=== PATIENT | male | born 1995 | race Caucasian/White ===

== ENCOUNTER → 2018-04-21 13:08 | Outpatient (CLI) | payer OTHER, SELFPAY ==
[2018-04-21 13:12] LABS: Microscopic, Urine URINE MICROSCOPIC (MICROSCOPIC)
[2018-04-21 13:26] LABS: Basophils # 0.1 K/mm3 (0-0.2); Basophils % 0.7 % (0.1-2.0); Eosinophils # 0.2 K/mm3 (0.0-0.4); Eosinophils % 2.7 % (0.1-12.0); Hematocrit 47.9 % (42.0-52.0); Hemoglobin 15.6 g/dL (14.1-18.0); Lymphocytes % 29.4 % (10-50); Mean Corpuscular HGB Conc 32.5 g/dL (31.8-35.4); Mean Corpuscular Hemoglobin 28.9 pg (27.0-31.2); Monocytes # 0.4 K/mm3 (0.1-1.0); Monocytes % 5.7 % (1.7-9.3); Neutrophils # 4.2 K/mm3 (1.8-7.8); Neutrophils % 61.7 % (37.0-80.0); Platelet Count 226 K/mm3 (142-424); Red Blood Count 5.38 M/mm3 (4.60-6.20); Red Cell Distribution Width 13.2 % (11.5-17.5); White Blood Count 6.8 K/mm3 (4.8-10.8)
[2018-04-21 14:30] LABS: Hemoglobin A1C 5.3 % (0.0-7.0)
[2018-04-21 14:37] LABS: Alanine Aminotransferase 24 U/L (12-78); Albumin Level 4.4 gm/dL (3.4-5.0); Albumin/Globulin Ratio 1.5 (1.1-1.8); Alkaline Phosphatase 52 U/L (46-116); Anion Gap 12.4 mEq/L (5-15); Aspartate Amino Transferase 12 U/L (15-37); Bilirubin,Total 1.2 mg/dL (0.2-1.0); Blood Urea Nitrogen 7 mg/dL (7-18); Carbon Dioxide 30 mmol/L (21.0-32.0); Chloride 104 mmol/L (98-107); Creatinine,Serum 0.83 mg/dL (0.70-1.30); Estimated Glomerular Filt Rate 115 ml/min (>60); Free Thyroxine Index 2.7 ug/dL (5.93-13.13); GFR (African American) 139 ML/MIN (>60); Globulin 2.9 gm/dl (1.3-3.2); Glucose 86 mg/dL (74-106); Potassium 4.4 mmoL/L (3.5-5.1); Sodium 142 mmol/L (136-145); T4 (Thyroxine) 7.8 ug/dl (4.7-13.3); Thyroid Stimulating Hormone 1.72 uIU/ml (0.358-3.740); Total Protein,Serum 7.3 gm/dL (6.4-8.2); Triiodothryronine (T3) Uptake 35 % (31-39)
[2018-04-21 15:15] LABS: Appearance,Urine CLEAR (Clear); Bilirubin,Urine Negative (Negative); Blood, Urine Negative (Negative); Color,Urine YELLOW (Yellow); Glucose,Urine (UA) Negative (Negative); Ketones,Urine TRACE (Negative); Leukocyte Esterase,Urine Negative (Negative); Nitrate,Urine Negative (Negative); PH,Urine 5.5 (5.0-8.5); Protein,Urine Negative (Negative); Specific Gravity, Urine >= 1.030 (1.005-1.030); Urobilinogen,Urine 0.2 EU/dl (0.2)
[2018-04-21 15:27] LABS: Amphetamine/Metha Screen,Urine Negative ng/mL (<1000); Bacteria,Urine 1+ /lpf; Barbiturates Screen,Urine Negative ng/mL (<200); Benzodiazepines Screen,Urine Negative ng/mL (<200); Cannabinoid Screen,Urine Positive ng/mL (<50); Cocaine Screen,Urine Negative ng/mL (<300); Methadone Screen,Urine Negative ng/mL (<300); Mucus,Urine Trace /lpf; Opiate Screen,Urine Negative ng/mL (<300); Phencyclidine Screen,Urine Negative ng/mL (<25); RBC,Urine Occasional #/hpf (0-3)
[2018-04-22 09:44] LABS: Vitamin B12 862 pg/mL (232-1245)
== END ==
PROVIDERS: Visit Provider Internal Medicine Adolescent Medicine
DX: R35.8 Other polyuria (principal); G80.8 Other cerebral palsy
CPT/HCPCS: 36415; 80053; 80305; 81001; 82607; 82652; 83036; 84436; 84443; 84479; 85025

== ENCOUNTER 2021-01-12 09:02 | Emergency (ER) | payer OTHER, SELFPAY ==
[2021-01-12 09:32] VITALS: BP 143/79; PULSE 69; RESP 20; TEMP 36.8; O2SAT 98; BMI 21.2
[2021-01-12 09:58] VITALS: BP 143/79; PULSE 69; RESP 20; TEMP 36.8
--- NOTE | 2021-01-12 10:10 | HMH.EDUTC ---
[facility] [place] Disposition Clinical Impression: Viral syndrome Disposition: Home, Self-Care Condition on Discharge: Good Instructions: DI for Viral Syndrome, DI for COVID-19 (Suspected or Confirmed ), Preventing the Spread of Coronavirus Discharge Instructions Additional Instructions: Drink plenty of fluids. Take tylenol or ibuprofen for pain or fever. Take the medications as directed. Follow up with your regular doctor. GO TO THE ER FOR ANY WORSENING SYMPTOMS Quarantine until you know the results of your covid-19 test. If it is positive, the health department should call you and give you further instructions about your length of Quarantine and other things. Notify your school or workplace of your results and follow their instructions regarding return to work/school. Referrals: Geoffrey Cullen MD [Primary Care Provider] - Time of Disposition: 10:13 Medical Decision Making - Medical Records Medical records reviewed: No: I reviewed the patient's medical records. - Conor Inquiry Pt receiving controlled substance: No Vital Signs: 01/12/21 09:32 01/12/21 09:58 Temperature 98.2 F 98.2 F Temperature Source Oral Pulse Rate 69 Pulse Rate [Left] 69 Respiratory Rate 20 20 Blood Pressure 143/79 H Blood Pressure [Right Arm] 143/79 H Blood Pressure Mean [Right Arm] 100 02 Sat by Pulse Oximetry 98 Orders (Tests/Meds): ORDERS Category Date Time Status Covid-19 Nasal PCR ([facility]) Routine Lab 01/12/21 09:31 Received [facility] [place] HPI - General Stated complaint: covid test Time Seen by Provider: 01/12/21 10:10 Mode of Arrival: Ambulatory Source of Information: Patient Limitations: No Limitations Description of Symptoms (Recalled from Triage Doc. by RN): pt is asymptomatic. he had lost his taste two weeks ago and has quarentined. he was not previously swabbed for covid. pt requests a covid test today. HEENT Symptoms (Recalled from RN notes): No Resp Symptoms (Recalled from RN notes): No Skin Symptoms (Recalled from RN notes): No MS Symptoms (Recalled from RN notes): No Functional Status (Recalled from RN notes): na - History of Present Illness Provider Complaint: He needs a covid test today. He feels fine today, but over the past 2 weeks he had lost his sense of taste and smell. - Related Data Allergies Allergy/AdvReac Type Severity Reaction Status Date / Time MILDEW Allergy Unknown Uncoded 05/05/17 15:37 MOLDS AND SMUTS Allergy Unknown Uncoded 05/05/17 15:37 RICE FLOUR AdvReac Unknown HEADACHE Uncoded 05/05/17 15:37 - Worker's Comp Is this a Worker's Comp case?: No H History - Hepatitis A Screen Drug use history?: No High risk sexual behaviors?: No History of sexually transmitted infection?: No Currently employed?: No Childcare worker?: No Do you have indoor plumbing?: Yes Do you have electricity?: Yes Attestation statement:: This patient has been screened for Hepatitis A risk factors. I have reviewed the patient's past medical history: Yes ROS Obtained: Yes All systems reviewed & no additional complaints - Constitutional Constitutional: Reports system reviewed and no additional complaints, except as docu - Eyes Eyes: Reports system reviewed and no additional complaints, except as docu - ENT Ears, Nose, Mouth, and Throat: Reports system reviewed and no additional complaints, except as docu - Cardiovascular Cardiovascular: Reports system reviewed and no additional complaints, except as docu - Respiratory Respiratory: Reports system reviewed and no additional complaints, except as docu - Gastrointestinal Gastrointestingal: Reports: system reviewed and no additional complaints, except as docu Physical Exam - General General appearance: alert, in no apparent distress - Head Head exam: atraumatic, normocephalic, normal inspection - Eye Eye exam: Present: normal appearance, PERRL, EOMI - ENT ENT exam: Present: normal exam, normal oropharynx, mucous membrane
--- NOTE | 2021-01-14 10:28 | PC.NURSE ---
PT NOTIFIED OF POSITIVE COVID TEST RESULTS
== END 2021-01-12 10:22 | disposition home or self-care (01) ==
PROVIDERS: Emergency Provider Nurse Practitioner Family; PCP Internal Medicine Adolescent Medicine
DX: U07.1 COVID-19 (principal)
CPT/HCPCS: 99202; G0463; U0003

== ENCOUNTER 2021-03-15 20:28 | Emergency (ER) | payer MEDICARE, SELFPAY ==
[2021-03-15 20:52] VITALS: BP 160/98; PULSE 103; RESP 18; TEMP 36.8; O2SAT 99; BMI 21.2
--- NOTE | 2021-03-15 21:03 | PC.NURSE ---
pt seems very anxious and nervous. pt has urinated three times since being here, small amounts. 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
[2021-03-15 21:05] LABS: Apearance,Urine Clear (Clear); Color,Urine Straw (Yellow); Specific Gravity, Urine 1.015 (1.005-1.030)
[2021-03-15 21:06] LABS: Bilirubin,Urine Negative (Negative); Blood, Urine Negative (Negative); Glucose,Urine (UA) Negative (Negative); Ketones,Urine Negative (Negative); Protein,Urine Negative (Negative); UTC Leukocyte Esterase,Urine Negative (Negative); UTC Nitrate,Urine Negative (Negative); Urobilinogen,Urine 0.2 EU/dl (0.2)
--- NOTE | 2021-03-15 21:06 | HMH.EDUTC ---
[facility] [place] Clinical Impression: Frequent urination Disposition: Home, Self-Care Condition on Discharge: Good Additional Instructions: Make sure to drink 6-8 glasses of water daily Follow up with your Family Doctor if no improvement or any worsening of symptoms Return if needed Straight to ER if any life threatening symptoms Follow up Urology if symptoms continue call office and make appointment Follow up with Family Doctor if no improvement Referrals: Geoffrey Cullen MD [Primary Care Provider] - As needed Albert Keen MD [Staff Physician] - As needed Time of Disposition: 21:24 Medical Decision Making - Conor Inquiry Pt receiving controlled substance: No Conor was queried for this patient: No Vital Signs: 03/15/21 20:52 03/15/21 21:16 Temperature 98.2 F 98.2 F Temperature Source Oral Pulse Rate 102 H Pulse Rate [Left] 103 H Respiratory Rate 18 18 Blood Pressure 160/97 H Blood Pressure [Right Arm] 160/98 H Blood Pressure Mean [Right Arm] 118 02 Sat by Pulse Oximetry 99 - Lab Data Lab results reviewed: Yes: I reviewed the patient's lab results. Lab Results 03/15/21 21:05: Urine Color Straw, Urine Appearance Clear, Urine pH 5.0, Ur Specific [place] 1.015, Urine Protein Negative, Urine Glucose (UA) Negative, Urine Ketones Negative, Urine Blood Negative, Urine Nitrate Negative, Urine Bilirubin Negative, Urine Urobilinogen 0.2, Ur Leukocyte Esterase Negative Medical Decision Narrative: Patient upset in [facility] that his urine was clear in color worried something was wrong with it, discussed with patient that color is normal and no abnormal finding with urine Discussed with mother that he needed to continue to drink plenty of water and if symptoms continued to follow up with his PCP and Urology Patient denies pain and denies history of kidney stone and denies pain in his back Patient state that he does drink lots of caffeine [facility] [place] - General Stated complaint: trouble urination Time Seen by Provider: 03/15/21 21:06 Mode of Arrival: Ambulatory Source of Information: Patient Limitations: No Limitations Description of Symptoms (Recalled from Triage Doc. by RN): pt states he is having difficulty urinating and that it has been going on for a few days. pt states he is able to urinate a small amount wait a few minutes and then is able to void a normal amount. HEENT Symptoms (Recalled from RN notes): No Resp Symptoms (Recalled from RN notes): No Skin Symptoms (Recalled from RN notes): Yes MS Symptoms (Recalled from RN notes): No Functional Status (Recalled from RN notes): na - History of Present Illness Provider Complaint: Patient states that he has been having trouble urinating on and off for a while and started again a couple days ago States that he feels like he needs to go but only urinates small amount then he will wait and he will urinate large amount states that he was worried he may have a UTI or something Mother states that he has CP and gets really nervous about things and he wanted to get checked - Related Data Allergies Allergy/AdvReac Type Severity Reaction Status Date / Time MILDEW Allergy Unknown Uncoded 05/05/17 15:37 MOLDS AND SMUTS Allergy Unknown Uncoded 05/05/17 15:37 RICE FLOUR AdvReac Unknown HEADACHE Uncoded 05/05/17 15:37 - Worker's Comp Is this a Worker's Comp case?: No [facility] History - Hepatitis A Screen Drug use history?: No High risk sexual behaviors?: No History of sexually transmitted infection?: No Currently employed?: No Childcare worker?: No Do you have indoor plumbing?: Yes Do you have electricity?: Yes Attestation statement:: This patient has been screened for Hepatitis A risk factors. I have reviewed the patient's past medical history: Yes ROS Obtained: Yes All systems reviewed & no additional complaints, Yes Systems reviewed as appropriate & no additional complaints - Constitutional Constitutional: Reports system reviewed and no additional comp
[2021-03-15 21:16] VITALS: BP 160/97; PULSE 102; RESP 18; TEMP 36.8
--- NOTE | 2021-03-15 21:27 | PC.NURSE ---
pt states he had a very large void and is feeling much better.
== END 2021-03-15 21:27 | disposition home or self-care (01) ==
PROVIDERS: Emergency Provider Nurse Practitioner; PCP Internal Medicine Adolescent Medicine
DX: R35.0 Frequency of micturition (principal)
CPT/HCPCS: G0463; 81003; 99202

== ENCOUNTER → 2021-06-26 10:50 | Outpatient (CLI) | payer MEDICARE, MEDICAID, SELFPAY ==
[2021-06-27 09:42] LABS: Covid-19 Nasal PCR Sendout Lex NOT DETECTED
== END ==
PROVIDERS: PCP Internal Medicine Adolescent Medicine; Visit Provider Nurse Practitioner
DX: Z20.822 Contact with and (suspected) exposure to COVID-19 (principal)
CPT/HCPCS: C9803; U0004; U0005

== ENCOUNTER 2022-02-28 14:27 | Emergency (ER) | payer MEDICARE, BC, SELFPAY ==
[2022-02-28 15:14] VITALS: BP 143/89; PULSE 91; RESP 19; TEMP 37; O2SAT 98; BMI 23.4
--- NOTE | 2022-02-28 15:22 | EXP.UTC ---
Discharge Plan Disposition Patient Disposition: Home, Self-Care Condition: Good Prescriptions Prescriptions: New azithromycin [Zithromax Z-Dao] 250 mg tablet See Rx Instructions .ROUTE .COMPLEX 5 Days Qty: 6 0RF Rx Instructions: For 250 mg dose pack: take 500 mg today (day 1), then 250 mg for 4 days (days 2-5) methylprednisolone [Medrol (Dao)] 4 mg tablets,dose pack See Rx Instructions .Route .COMPLEX 6 Days Qty: 21 0RF Rx Instructions: taper pack; bsbbvxzhoimyhzw-kpndivdhb-OQ [Bromfed DM] 2-30-10 mg/5 mL syrup 5 - 10 ml PO Q6H PRN (Reason: cold symptoms) Qty: 200 0RF Referrals Follow up/Referrals: Geoffrey Cullen MD [Primary Care Provider] - See instructions Clinical Impressions Clinical Impression: URI (upper respiratory infection) Instructions Patient Instructions: Sore Throat, DI for Sinusitis Discharge ED Provider: Chayo Rivero [facility] [place] HPI General Stated complaint: cough, chest congestion, back pain Mode of Arrival: Ambulatory Source of Information: Patient Limitations: No Limitations Time Seen by Provider: 02/28/22 15:22 Description of Symptoms (Recalled from Triage Doc. by RN): pt comes in with c/o sore throat, congestion, cough, symptoms ongoing for 3 days. HEENT Symptoms (Recalled from RN notes): Yes Resp Symptoms (Recalled from RN notes): Yes Skin Symptoms (Recalled from RN notes): No MS Symptoms (Recalled from RN notes): No Functional Status (Recalled from RN notes): n/a History of Present Illness Provider Complaint: Patient state that he has been having sore thorat, sinus congestion and pressure, and cough for the last 3-4 days that has continued to get worse State that he feels like it is running down his throat making his throat hurt States that he wanted to get checked Related Data Previous Rx's Medication Instructions Recorded azithromycin 250 mg tablet See Rx Instructions PO .COMPLEX 5 02/28/22 (Zithromax Z-Dao) days #6 tabs bwwdoycrzjnxdfz-wmxrjxpqjnpioxh-FU 5 - 10 ml PO Q6H PRN cold symptoms 02/28/22 2 mg-30 mg-10 mg/5 mL oral syrup #200 mL (Bromfed DM) methylprednisolone 4 mg tablets in See Rx Instructions .Route 02/28/22 a dose pack (Medrol (Dao)) .COMPLEX 6 days #21 tabs Allergies Allergy/AdvReac Type Severity Reaction Status Date / Time MILDEW Allergy Unknown Uncoded 05/05/17 15:37 MOLDS AND SMUTS Allergy Unknown Uncoded 05/05/17 15:37 RICE FLOUR AdvReac Unknown HEADACHE Uncoded 05/05/17 15:37 Worker's Comp Is this a Worker's Comp case?: No PFSH PFSH Social History Smoking Status: Unknown if ever smoked alcohol intake: never current occupational status: employed Travel in the last 8 weeks: None ROS Obtained: Yes All systems reviewed & no additional complaints except as documented and Yes Systems reviewed as appropriate & no additional complaints except as documented Constitutional Constitutional: Reports system reviewed and no additional complaints, except as documented, Reports as per HPI and Reports headache(s) ENT Ears, Nose, Mouth, and Throat: Reports system reviewed and no additional complaints, except as documented, Reports as per HPI, Reports headache(s), Reports sinus pain, Reports sinus pressure and Reports sore throat Cardiovascular Cardiovascular: Reports system reviewed and no additional complaints, except as documented and Reports as per HPI Respiratory Respiratory: Reports system reviewed and no additional complaints, except as documented, Reports as per HPI, Reports chest congestion and Reports cough Gastrointestinal Gastrointestingal: Reports system reviewed and no additional complaints, except as documented and as per HPI Neurologic Neurologic: Reports headache(s) Physical Exam General General appearance: alert and in no apparent distress Expanded ENT Exam Nose exam: Present sinus tenderness Throat exam: Present tonsillar erythema Respiratory Respiratory exam: Present normal lung sounds bilaterally; Absent r
[2022-02-28 15:23] LABS: UTC Strep Screen (Rapid) Negative (Negative)
[2022-02-28 15:45] VITALS: BP 143/89; PULSE 91; RESP 19; TEMP 37
== END 2022-02-28 15:48 | disposition home or self-care (01) ==
PROVIDERS: Emergency Provider Nurse Practitioner; PCP Internal Medicine Adolescent Medicine
DX: J06.9 Acute upper respiratory infection, unspecified (principal)
CPT/HCPCS: 87880; 99212; C9803; G0463; U0003; U0005

== ENCOUNTER 2022-04-29 08:49 | Emergency (ER) | payer MEDICARE, BC, SELFPAY ==
[2022-04-29] VITALS (8 sets, daily range): BP systolic 112–131; BP diastolic 72–88; PULSE 87–98; RESP 16–18; TEMP 36.4; O2SAT 97–100; BMI 22.8
--- NOTE | 2022-04-29 09:26 | XR_ITS ---
FINAL REPORT CLINICAL HISTORY: ams FINDINGS: The heart size is normal. The mediastinum is within normal limits. There is no acute cardiopulmonary process. There is no pleural effusion. There is no pneumothorax. The bony thorax is intact. IMPRESSION: No acute cardiopulmonary process. Reviewed, Interpreted and Dictated by Matthew Hahn III, MD Transcribed by Armando Mckeon Authenticated and [facility]
[2022-04-29 09:37] LABS: Basophils # 0.1 K/mm3 (0-0.2); Basophils % 1.5 % (0.1-2.0); Eosinophils # 0.2 K/mm3 (0.0-0.4); Eosinophils % 1.8 % (0.1-12.0); Hematocrit 53.5 % (42.0-52.0); Hemoglobin 17.6 g/dL (14.1-18.0); Lymphocytes # 3.2 K/mm3 (0.7-4.5); Lymphocytes % 36.5 % (10-50); Mean Corpuscular HGB Conc 32.8 g/dL (31.8-35.4); Mean Corpuscular Hemoglobin 29.7 pg (27.0-31.2); Mean Corpuscular Volume 90.6 fl (80-94); Mean Platelet Volume 8.7 fl (7.4-10.4); Monocytes # 0.4 K/mm3 (0.1-1.0); Monocytes % 4.7 % (1.7-9.3); Neutrophils # 4.8 K/mm3 (1.8-7.8); Neutrophils % 55.4 % (37.0-80.0); Platelet Count 230 K/mm3 (142-424); Red Blood Count 5.91 M/mm3 (4.60-6.20); Red Cell Distribution Width 13.5 % (11.5-17.5); White Blood Count 8.7 K/mm3 (4.8-10.8)
--- NOTE | 2022-04-29 09:37 | CT_ITS ---
FINAL REPORT CLINICAL HISTORY: fall X 2 FINDINGS: Axial CT images of the cervical spine were obtained without contrast. Sagittal and coronal reformatted images were also obtained. This study was performed with techniques to keep radiation doses as low as reasonably achievable (ALARA). Individualized dose reduction techniques using automated exposure control or adjustment of mA and/or kV according to the patient''s size were employed. There is no evidence of fracture or dislocation. The bony alignment is normal. The disc spaces are preserved. There is no evidence of canal stenosis. No paraspinous soft tissue abnormality is seen. Limited images of the upper thorax are unremarkable. IMPRESSION: No fracture or acute bony abnormality identified. Reviewed, Interpreted and Dictated by Matthew Hahn III, MD Transcribed by Armando Mckeon Authenticated and [facility]
--- NOTE | 2022-04-29 09:37 | CT_ITS ---
FINAL REPORT CLINICAL HISTORY: fall X 2, ams. FINDINGS: Axial images of the head were obtained without contrast. Coronal reformatted images were also obtained.This study was performed with techniques to keep radiation doses as low as reasonably achievable (ALARA). Individualized dose reduction techniques using automated exposure control or adjustment of mA and/or kV according to the patient's size were employed. Significant motion artifact decreases sensitivity of this exam. There is no evidence of intracranial hemorrhage or mass. The ventricular size is within normal limits. There is no evidence of shift of the midline structures. There is mild irregularity of the bilateral tentorium favoring to be artifact over small subdural hematomas. No skull abnormality is seen on the bone window images. IMPRESSION: Significant motion artifact. Mild irregularity of the bilateral tentorium favors artifact over small subdural hematomas. Should symptoms persist follow-up CT or MRI may be helpful. No acute intracranial abnormality. Reviewed, Interpreted and Dictated by Matthew Hahn III, MD Transcribed by Armando Mckeon Authenticated and [facility]
--- NOTE | 2022-04-29 09:38 | HMH.EDGENADL ---
Discharge Plan Disposition Patient Disposition: Home, Self-Care Condition: Good Chief Complaint: Fall Prescriptions Prescriptions: No Action azithromycin [Zithromax Z-Dao] 250 mg tablet See Rx Instructions .ROUTE .COMPLEX 5 Days Qty: 6 0RF Rx Instructions: For 250 mg dose pack: take 500 mg today (day 1), then 250 mg for 4 days (days 2-5) methylprednisolone [Medrol (Dao)] 4 mg tablets,dose pack See Rx Instructions .Route .COMPLEX 6 Days Qty: 21 0RF Rx Instructions: taper pack; rizsubbreaheesl-lmyryfyqj-GB [Bromfed DM] 2-30-10 mg/5 mL syrup 5 - 10 ml PO Q6H PRN (Reason: cold symptoms) Qty: 200 0RF Referrals Follow up/Referrals: Geoffrey Cullen MD [Primary Care Provider] - See instructions Activity Restrictions/Add. Instructions Additional Instructions/Restrictions: Home to rest in bed. He may need help with ambulating for the next 48 hours. Return the emergency department for any concerns. Clinical Impressions Clinical Impression: Alcohol intoxication Instructions Patient Instructions: DI for Alcohol Poisoning Discharge ED Provider: Alex Urbano General Adult HPI General Chief complaint: Fall Stated complaint: Confusion, weakness Time Seen by Provider: 04/29/22 09:31 History of Present Illness HPI narrative: Patient has cerebral palsy. Mother states he has had a previous stroke with brain damage . History obtained from patient and family. Patient states I got really drunk last night . Family is skeptical of this. They state that he has been in bed since 4 AM and there is no alcohol missing in the house. He also keeps changing what alcohol he says that he drank. They state that he fell twice today. Mother heard him fall both times but did not witness it. She says the second time he fell he was in the bathroom and could not get up himself. They state he was confused, did not know who his mother was and did not know his own name. The patient does not remember falling. He denies any injury or any pain. Family also notes that he has been incontinent of urine, they suspect this occurred on the way to the hospital. They state he has not recently been ill in any way to their knowledge. Related Data Previous Rx's Medication Instructions Recorded azithromycin 250 mg tablet See Rx Instructions PO .COMPLEX 5 02/28/22 (Zithromax Z-Dao) days #6 tabs pyxpibzxcgjgjko-aboxuwxzqinlrzh-GE 5 - 10 ml PO Q6H PRN cold symptoms 02/28/22 2 mg-30 mg-10 mg/5 mL oral syrup #200 mL (Bromfed DM) methylprednisolone 4 mg tablets in See Rx Instructions .Route 02/28/22 a dose pack (Medrol (Dao)) .COMPLEX 6 days #21 tabs Allergies Allergy/AdvReac Type Severity Reaction Status Date / Time MILDEW Allergy Unknown Uncoded 05/05/17 15:37 MOLDS AND SMUTS Allergy Unknown Uncoded 05/05/17 15:37 RICE FLOUR AdvReac Unknown HEADACHE Uncoded 05/05/17 15:37 PFSH PFSH Disclaimer: The information contained in this section may have been updated after the patient was seen, as this information can be updated by other users. Social History (Updated 02/28/22 @ 15:32 by Chayo Rivero, DESIGN ENG) Smoking Status: Current every day smoker alcohol intake: never current occupational status: employed Travel in the last 8 weeks: None ROS Obtained: Yes Systems reviewed as appropriate & no additional complaints except as documented Constitutional Constitutional: Denies fever(s), Reports frequent falls, Denies headache(s) and Reports weakness ENT Ears, Nose, Mouth, and Throat: Reports disequilibrium, Denies headache(s), Denies nasal discharge and Denies sore throat Cardiovascular Cardiovascular: Denies chest pain Respiratory Respiratory: Denies shortness of breath and Denies cough Gastrointestinal Gastrointestingal: Denies abdominal pain, constipation, diarrhea or vomiting Genitourinary Male Genitourinary: Denies difficulty urinating, Denies flank pain and Reports urinary incontinence Musculosk
--- NOTE | 2022-04-29 09:39 | PC.NURSE ---
Family at BS
[2022-04-29 09:41] LABS: Chloride 103 mmol/L (98-107); Potassium 3.6 mmoL/L (3.5-5.1); Sodium 146 mmol/L (136-145)
[2022-04-29 09:44] LABS: Alanine Aminotransferase 25 U/L (12-78); Albumin/Globulin Ratio 1.8 (1.1-1.8); Alkaline Phosphatase 52 U/L (38-126); Anion Gap 13.6 mEq/L (5-15); Aspartate Amino Transferase 34 U/L (17-59); Bilirubin,Total 0.8 mg/dl (0.2-1.3); Blood Urea Nitrogen 12 mg/dl (9-20); Carbon Dioxide 33 mmol/L (22.0-30.0); Creatinine Clearance Estimated 89 mL/min (50-200); Estimated Glomerular Filt Rate 73 ml/min (>60); Ethyl Alcohol 224 mg/dl (0-10); GFR (African American) 88 ML/MIN (>60); Globulin 2.8 g/dL (1.3-3.2); Total Protein,Serum 7.8 g/dl (6.3-8.2)
[2022-04-29 09:45] LABS: Calcium 9.2 mg/dl (8.4-10.2); Glucose 82 mg/dl (74-100)
--- NOTE | 2022-04-29 09:49 | PC.NURSE ---
patient back from CT via stretcher with research laboratory technician
[2022-04-29 10:10] LABS: Acetaminophen < 10 ug/ml (10-30); Salicylate < 1.0 mg/dL (2.0-20.0)
--- NOTE | 2022-04-29 10:43 | PC.NURSE ---
contacted rad to check on status of results, states preliminaries are available and will send them down
--- NOTE | 2022-04-29 10:44 | PC.NURSE ---
Rounded on patient; family at BS. Patient is sleeping, and family updated that we are waiting on imaging reports. no other needs at this time. KRZYSZTOF Mccullough going into room at this time
--- NOTE | 2022-04-29 10:44 | PC.NURSE ---
pt sleeping at this time, family at BS, family states no needs at this time
--- NOTE | 2022-04-29 10:52 | PC.NURSE ---
Preliminary reports faxed from radiology and given to ER
== END 2022-04-29 12:13 | disposition home or self-care (01) ==
PROVIDERS: Emergency Provider Emergency Medicine; PCP Internal Medicine Adolescent Medicine
DX: F10.129 Alcohol abuse with intoxication, unspecified (principal); Y90.7 Blood alcohol level of 200-239 mg/100 ml; W17.89XA Other fall from one level to another, initial encounter; Y92.009 Unspecified place in unspecified non-institutional (private) residence as the place of occurrence of the external cause; Z86.73 Personal history of transient ischemic attack (TIA), and cerebral infarction without residual deficits
CPT/HCPCS: 70450; 71045; 72125; 80053; 80329; 85025; 99285

== ENCOUNTER → 2022-06-09 14:01 | Outpatient (CLI) | payer MEDICARE, BC, SELFPAY ==
--- NOTE | 2022-06-09 14:07 | XR_ITS ---
FINAL REPORT CLINICAL HISTORY: ankle pain FINDINGS: AP, oblique, and lateral views of the right ankle were obtained. There is no prior exam for comparison. There is no fracture or dislocation. The ankle mortise is intact. Soft tissues are normal. IMPRESSION: No acute osseous abnormality of the right ankle. Reviewed, Interpreted and Dictated by Riana Flannery MD Transcribed by Dinah Hampton Authenticated and [facility]
--- NOTE | 2022-06-09 14:07 | XR_ITS ---
FINAL REPORT CLINICAL HISTORY: Left foot pain FINDINGS: AP, oblique and lateral views of the left foot were obtained. There is no prior exam for comparison. There is no acute fracture or dislocation. The joint spaces are preserved. Soft tissues are normal. IMPRESSION: No acute osseous abnormality of the left foot. Reviewed, Interpreted and Dictated by Riana Flannery MD Transcribed by Dinah Hampton Authenticated and [facility]
--- NOTE | 2022-06-09 14:07 | XR_ITS ---
FINAL REPORT CLINICAL HISTORY: Right foot pain FINDINGS: AP, oblique and lateral views of the right foot were obtained. There is no prior exam for comparison. There is no acute fracture or dislocation. The joint spaces are preserved. Soft tissues are normal. IMPRESSION: No acute osseous abnormality of the right foot. Reviewed, Interpreted and Dictated by Riana Flannery MD Transcribed by Dinah Hampton Authenticated and [facility]
--- NOTE | 2022-06-09 14:07 | XR_ITS ---
FINAL REPORT CLINICAL HISTORY: foot pain FINDINGS: AP, oblique, and lateral views of the left ankle were obtained. There is no prior exam for comparison. There is no fracture or dislocation. The ankle mortise is intact. Soft tissues are normal. IMPRESSION: No acute osseous abnormality of the left ankle. Reviewed, Interpreted and Dictated by Riana Flannery MD Transcribed by Dinah Hampton Authenticated and [facility]
== END ==
PROVIDERS: PCP Internal Medicine Adolescent Medicine; Visit Provider Nurse Practitioner Family
DX: M79.672 Pain in left foot; M79.671 Pain in right foot; M25.572 Pain in left ankle and joints of left foot; M25.571 Pain in right ankle and joints of right foot
CPT/HCPCS: 73610; 73630

== ENCOUNTER 2022-06-27 11:40 | Emergency (ER) | payer MEDICARE, BC, SELFPAY ==
--- NOTE | 2022-06-27 12:06 | XR_ITS ---
FINAL REPORT CLINICAL HISTORY: fall FINDINGS: Left hip Three views were obtained. There is no acute fracture or dislocation. The joint spaces appear normal. No soft tissue abnormality is identified. IMPRESSION: No acute process. Reviewed, Interpreted and Dictated by Elian Vizcarra MD Transcribed by Kate Siegel Authenticated and . [facility]
--- NOTE | 2022-06-27 12:06 | XR_ITS ---
FINAL REPORT CLINICAL HISTORY: fell FINDINGS: Left shoulder Four views were obtained. There is no acute fracture or dislocation. The joint spaces appear normal. No soft tissue abnormality is identified. IMPRESSION: No acute process. Reviewed, Interpreted and Dictated by Elian Vizcarra MD Transcribed by Kate Siegel Authenticated and [facility]
[2022-06-27 12:10] VITALS: BP 109/65; PULSE 73; RESP 20; TEMP 36.5; O2SAT 96; BMI 21.2
--- NOTE | 2022-06-27 12:55 | EXP.UTC ---
Discharge Plan Disposition Patient Disposition: Home, Self-Care Condition: Good Prescriptions Prescriptions: New celecoxib [Celebrex] 200 mg capsule 200 mg PO DAILY Qty: 30 0RF Referrals Follow up/Referrals: Geoffrey Cullen MD [Primary Care Provider] - See instructions Activity Restrictions/Add. Instructions Additional Instructions/Restrictions: Warm compresses Increase fluids F/U with [facility] if not improving Clinical Impressions Clinical Impression: Fall, Left shoulder pain, Acute pain of left hip Instructions Patient Instructions: DI for Shoulder Pain Discharge ED Provider: Norma Doyle [facility] [place] HPI General Stated complaint: Shoulder and hip pain from fall Ao ,, Mode of Arrival: Ambulatory Source of Information: Patient Limitations: No Limitations Time Seen by Provider: 06/27/22 12:55 Description of Symptoms (Recalled from Triage Doc. by RN): fell on thursday hurt shouder and hip on left side HEENT Symptoms (Recalled from RN notes): No Resp Symptoms (Recalled from RN notes): No Skin Symptoms (Recalled from RN notes): No MS Symptoms (Recalled from RN notes): Yes Functional Status (Recalled from RN notes): n/a History of Present Illness Provider Complaint: Patient fell 3 days ago. States he feel straight backwards. Did not hit his head nor lose consciousness. He did hit his left shoulder and his left hip. He has a history of CP and his left side is naturally weaker. He is using Baclofen, Voltaren gel, Biofreeze with a little relief. Onset (ago): day(s) Location: pelvis, left and upper extremity Quality: aching Relieving factors: immobilization Exacerbating factors: movement Associated symptoms: denies other symptoms Treatments prior to arrival: other (Diclofenac gel, Biofreeze, ) Related Data Previous Rx's Medication Instructions Recorded celecoxib 200 mg capsule (Celebrex) 200 mg PO DAILY #30 caps 06/27/22 Allergies Allergy/AdvReac Type Severity Reaction Status Date / Time MILDEW Allergy Unknown Uncoded 06/27/22 12:29 MOLDS AND SMUTS Allergy Unknown Uncoded 06/27/22 12:30 RICE FLOUR AdvReac Unknown HEADACHE Uncoded 06/27/22 12:30 Worker's Comp Is this a Worker's Comp case?: No [facility] Disclaimer: The information contained in this section may have been updated after the patient was seen, as this information can be updated by other users. Surgical History History of placement of ear tubes Social History Smoking Status: Current every day smoker alcohol intake: never current occupational status: employed Travel in the last 8 weeks: None ROS Obtained: Yes All systems reviewed & no additional complaints except as documented Musculoskeletal Musculoskeletal: Reports arthralgias and Reports limited range of motion Physical Exam General General appearance: alert and in no apparent distress Head Head exam: atraumatic, normocephalic and normal inspection Eye Eye exam: Present normal appearance, PERRL and EOMI ENT ENT exam: Present normal exam, normal oropharynx, mucous membranes moist, TM's normal bilaterally and normal external ear exam Neck Neck exam: Present normal inspection, full ROM and trachea midline; Absent meningismus or lymphadenopathy Chest Chest inspection: Present normal inspection and symmetric chest wall rise; Absent tenderness Respiratory Respiratory exam: Present normal lung sounds bilaterally; Absent respiratory distress Cardiovascular Cardiovascular exam: Present regular rate and normal rhythm; Absent JVD Abdominal Exam Abdominal exam: Present soft and normal bowel sounds; Absent distention, tenderness or guarding Extremities Exam Extremities exam: Present normal inspection, full ROM and normal capillary refill; Absent calf tenderness Expanded Upper Extremity Exam Left: Shoulder exam: Present normal inspection, full ROM and tenderness
[2022-06-27 13:18] VITALS: BP 109/65; PULSE 73; RESP 20; TEMP 36.5; O2SAT 96
== END 2022-06-27 13:18 | disposition home or self-care (01) ==
PROVIDERS: Emergency Provider Physician Assistant; PCP Internal Medicine Adolescent Medicine
DX: M25.512 Pain in left shoulder (principal); W18.30XA Fall on same level, unspecified, initial encounter; M25.552 Pain in left hip
CPT/HCPCS: 73030; 73502; 99213; G0463

== ENCOUNTER 2022-12-07 14:42 | Emergency (ER) | payer MEDICARE, SELFPAY ==
[2022-12-07 15:00] VITALS: BP 122/77; PULSE 78; RESP 18; TEMP 36.6; O2SAT 98; BMI 22.8
--- NOTE | 2022-12-07 15:16 | EXP.UTC ---
Discharge Plan Disposition Patient Disposition: Home, Self-Care Condition: Good Prescriptions Prescriptions: No Action celecoxib 200 mg capsule See Rx Instructions .ROUTE .COMPLEX Qty: 30 0RF Dose Instruction: Take 1 capsule by mouth once daily Rx Instructions: Take 1 capsule by mouth once daily Referrals Follow up/Referrals: Geoffrey Cullen MD [Primary Care Provider] - See instructions Activity Restrictions/Add. Instructions Additional Instructions/Restrictions: You will need to get retested in 6mths for Hepatitis C it may take several months to show Follow up with your Family Doctor Your results from your initial test should be back in the next 3-5 days Return if needed Clinical Impressions Clinical Impression: Exposure to hepatitis C Instructions Patient Instructions: DI for Hepatitis C, Hepatitis C Virus Discharge ED Provider: Chayo Rivero [facility] [place] General Stated complaint: Exposure to Hep C, LT foot Mode of Arrival: Ambulatory Source of Information: Patient Limitations: No Limitations Time Seen by Provider: 12/07/22 15:16 Description of Symptoms (Recalled from Triage Doc. by RN): PATIENT STATES HE WAS TRYING TO CUT A CALLOUS OFF OF HIS FOOT LAST NIGHT USING A SCALPEL THAT SOMEONE WITH HEP C USED PREVIOUSLY. HE STATES HE CLEANED WITH ALCOHOL PRIOR TO USE, BUT HIS MOTHER IS CONCERNED HE DID NOT CLEAN IT GOOD ENOUGH AND WANTS HIM TESTED FOR HEP C HEENT Symptoms (Recalled from RN notes): No Resp Symptoms (Recalled from RN notes): No Skin Symptoms (Recalled from RN notes): Yes MS Symptoms (Recalled from RN notes): No Functional Status (Recalled from RN notes): WNL History of Present Illness Provider Complaint: Patient states that he has a callus on his foot and last night it was aggravating him so he cleaned a scalpel that was previously used by someone else to cut their boils that has Hep C States that he cleaned it with alcohol but did rigoberto the skin a little and mother concerned he may have exposed himself to hep c and wanted to get him to get tested Related Data Previous Rx's Medication Instructions Recorded celecoxib 200 mg capsule See Rx Instructions .Route 08/01/22 .COMPLEX #30 caps Allergies Allergy/AdvReac Type Severity Reaction Status Date / Time MILDEW Allergy Unknown Uncoded 06/27/22 12:29 MOLDS AND SMUTS Allergy Unknown Uncoded 06/27/22 12:30 RICE FLOUR AdvReac Unknown HEADACHE Uncoded 06/27/22 12:30 Worker's Comp Is this a Worker's Comp case?: No [facility] Disclaimer: The information contained in this section may have been updated after the patient was seen, as this information can be updated by other users. Surgical History History of placement of ear tubes Social History Smoking Status: Current every day smoker alcohol intake: never current occupational status: employed Travel in the last 8 weeks: None ROS Obtained: Yes All systems reviewed & no additional complaints except as documented and Yes Systems reviewed as appropriate & no additional complaints except as documented Constitutional Constitutional: Reports system reviewed and no additional complaints, except as documented and Reports as per HPI ENT Ears, Nose, Mouth, and Throat: Reports system reviewed and no additional complaints, except as documented and Reports as per HPI Cardiovascular Cardiovascular: Reports system reviewed and no additional complaints, except as documented and Reports as per HPI Respiratory Respiratory: Reports system reviewed and no additional complaints, except as documented and Reports as per HPI Gastrointestinal Gastrointestingal: Reports system reviewed and no additional complaints, except as documented and as per HPI Musculoskeletal Musculoskeletal: Reports system reviewed and no additional complaints, except as documented and Reports as per HPI Physical Exam Ge
[2022-12-07 15:23] VITALS: BP 122/77; PULSE 78; RESP 18; TEMP 36.6; O2SAT 98
[2022-12-09 08:33] LABS: HBsAg Screen Negative (Negative); HCV Ab Non Reactive (Non Reactive); Hep A Ab, IGM Negative (Negative); Hep B Core Ab, IgM Negative (Negative)
== END 2022-12-07 15:27 | disposition home or self-care (01) ==
PROVIDERS: Emergency Provider Nurse Practitioner; PCP Internal Medicine Adolescent Medicine
DX: F17.210 Nicotine dependence, cigarettes, uncomplicated (principal); Z20.5 Contact with and (suspected) exposure to viral hepatitis
CPT/HCPCS: 80074; 99212; G0463